=== PATIENT | female | born 1965 | race American Indian/Alaskan Native ===

== ENCOUNTER 2021-08-22 07:39 | Emergency (ER) | payer MEDICARE ==
[2021-08-22] MEDS ORDERED: TETANUS,DIPH,PERTUSS(ACELL) VACCINE 0.5 ML SYRINGE IM ONE (08:28)
[2021-08-22] MEDS ORDERED: propofoL 200 MG/20 ML VIAL IV ONE (08:28)
[2021-08-22] MEDS ORDERED: KETAMINE 500 MG/5 ML VIAL MDV IV ONE (08:28)
[2021-08-22] MEDS ORDERED: LIDOCAINE 1%/EPINEPHRINE 1:100,000 VIAL (20 ML) INFILTRATI NR (08:30)
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
[2021-08-22] MEDS ORDERED: KETOROLAC 30 MG/1 ML INJ IV ONE (09:10)
[2021-08-22] MEDS ORDERED: SODIUM CHLORIDE 0.9% 1000 ML 1,000 ML ONE (09:41)
[2021-08-22] MEDS ORDERED: CLINDAMYCIN 600 MG/50 mL 600 MG/50 ML BAG IV ONE (09:54)
[2021-08-22] MEDS ORDERED: SULFAMETHOXAZOLE/TRIMETHOPRIM 800/160MG DS TAB PO ONE (11:45)
[2021-08-22 12:23] VITALS: BP 119/98
== END 2021-08-22 14:03 | disposition home or self-care (01) ==
LOC: ED 07:39 → EEVIPCON 07:39 → ED 14:03
DX: L02.31 Cutaneous abscess of buttock (principal); R50.9 Fever, unspecified; R20.2 Paresthesia of skin; I10 Essential (primary) hypertension; Z88.5 Allergy status to narcotic agent
CPT/HCPCS: 10061; 96374; 99282; J1885; J2704; J7030; 96375